=== PATIENT | female | born 1955 | race Caucasian/White ===

== ENCOUNTER 2017-05-08 13:13 | Outpatient (CLI) | payer OTHER, SELFPAY | END 2017-05-08 13:14 | disposition home or self-care (01) | LOC: BICMAMMO 13:13 | PROVIDERS: ATTEND Physician Assistant | DX: Z12.31 Encounter for screening mammogram for malignant neoplasm of breast (principal); Z85.3 Personal history of malignant neoplasm of breast | CPT/HCPCS: 77063; 77067 ==

== ENCOUNTER 2018-07-01 08:42 | Outpatient (CLI) | payer OTHER ==
--- NOTE | 2018-07-01 10:01 | BD ---
DEXA BONE DENSITY STUDY: Date: 07/01/18 HISTORY: Postmenopausal. FINDINGS: Right Femoral Neck: 0.754 T-Score: -0.9 Total: 0.914 T-Score: -0.2 Left Femoral Neck: 0.733 T-Score: -1.9 Total: 0.900 T-Score: -0.3 IMPRESSION: Normal bone mineral density of the right and left femoral necks. POS: TPC
--- NOTE | 2018-07-02 11:58 | MMO ---
Bilateral MAMMO Bilat Screen [facility]. CLINICAL HISTORY: Patient is 62 years old and is seen for screening. The patient has the following family history of breast cancer: mother, at age 70 and maternal aunt, malignant (generic), X2. The patient has no personal history of cancer. VIEWS: The views performed were: bilateral craniocaudal with tomosynthesis and bilateral mediolateral oblique with tomosynthesis. FILMS COMPARED: The present examination has been compared to prior imaging studies performed at [facility] on 05/08/2017, and at [facility] on 09/19/2013, 09/22/2013 and 10/12/2014. MAMMOGRAM FINDINGS: There are scattered fibroglandular densities. There are stable benign appearing calcifications seen in both breasts. There are no suspicious masses, suspicious calcifications, or new areas of architectural distortion. IMPRESSION: THERE IS NO MAMMOGRAPHIC EVIDENCE OF MALIGNANCY. A ROUTINE FOLLOW-UP MAMMOGRAM IN 1 YEAR IS RECOMMENDED. THE RESULTS OF THIS EXAM WERE SENT TO THE PATIENT. ACR BI-RADS Category 2 - Benign finding MAMMOGRAPHY NOTE: 1. A negative mammogram report should not delay a biopsy if a dominant of clinically suspicious mass is present. 2. Approximately 10% to 15% of breast cancers are not detected by mammography. 3. Adenosis and dense breasts may obscure an underlying neoplasm.
== END 2018-07-01 08:43 | disposition home or self-care (01) ==
LOC: BICMAMMO 08:42
PROVIDERS: ATTEND Physician Assistant
DX: Z12.31 Encounter for screening mammogram for malignant neoplasm of breast (principal); Z13.820 Encounter for screening for osteoporosis; Z78.0 Asymptomatic menopausal state; Z80.3 Family history of malignant neoplasm of breast
CPT/HCPCS: 77063; 77067; 77080

== ENCOUNTER 2019-01-11 09:50 | Outpatient (CLI) | payer MEDICARE ==
[2019-01-11] MEDS ORDERED: Iopamidol 370 76% 100 ML VIAL ONE (10:04)
--- NOTE | 2019-01-11 12:03 | CT ---
Exam: CT angiogram of the chest HISTORY: Months of breath. Elevated d-dimer. COMPARISON: None TECHNIQUE: CT angiogram of the chest is performed in the axial plane. Three-dimensional reformatted i mages are submitted for interpretation FINDINGS: Mediastinum: No mass, lymphadenopathy or hematoma. HEART: Normal size. No significant pericardial fluid. Aorta: No aneurysm or dissection. Slight elongation likely due to overall rightward curvature of the lumbar spine. The origin of the great vessels of the neck are grossly unremarkable. Upper solid abdominal viscera: No abnormality enhancement. Small hiatal hernia is identified. Trachea and central bronchi: Patent Pleural spaces: No effusion Lung parenchyma: Patchy groundglass opacities throughout the lung parenchyma. Additional linear opaci ties are noted in the lingula and bilateral lower lobes likely due to scar/atelectasis. Pneumothorax: None Osseous structures: There is evidence of internal fixation with Wilkins rods. There is a dextro sc oliosis of the thoracic spine. Pulmonary arteries: Adequate contrast opacification pulmonary arterial system to the level of segment al arteries. No filling defect to suggest pulmonary embolism IMPRESSION: 1. No evidence of pulmonary artery embolism to the level of the segmental arteries. 2. Dextroscoliosis of the thoracic spine. Associated internal fixation hardware. 3. Moderate hiatal hernia. 4. Patchy groundglass opacities which may represent edema. Atelectasis or scarring in the lower lobes and lingula.
== END 2019-01-11 09:51 | disposition home or self-care (01) ==
LOC: CT 09:50
PROVIDERS: ATTEND Physician Assistant
DX: R06.09 Other forms of dyspnea (principal); R79.1 Abnormal coagulation profile; M41.9 Scoliosis, unspecified; K44.9 Diaphragmatic hernia without obstruction or gangrene; R91.8 Other nonspecific abnormal finding of lung field
CPT/HCPCS: 71275; 82565; Q9967

== ENCOUNTER 2019-09-26 08:25 | Outpatient (CLI) | payer MEDICARE ==
--- NOTE | 2019-09-26 09:34 | MMO ---
Bilateral MAMMO Bilat Screen [facility]. CLINICAL HISTORY: Patient is 63 years old and is seen for screening. The patient has the following family history of breast cancer: mother, at age 70 and maternal aunt, malignant (generic), X2. The patient has no personal history of cancer. VIEWS: The views performed were: bilateral craniocaudal with tomosynthesis and bilateral mediolateral oblique with tomosynthesis. FILMS COMPARED: The present examination has been compared to prior imaging studies performed at [facility] on 05/08/2017 and 07/01/2018, and at [facility] on 09/22/2013 and 10/12/2014. This study has been interpreted with the assistance of computer-aided detection. MAMMOGRAM FINDINGS: There are scattered fibroglandular densities. There are stable benign appearing calcifications seen in both breasts. There are no suspicious masses, suspicious calcifications, or new areas of architectural distortion. IMPRESSION: THERE IS NO MAMMOGRAPHIC EVIDENCE OF MALIGNANCY. A ROUTINE FOLLOW-UP MAMMOGRAM IN 1 YEAR IS RECOMMENDED. THE RESULTS OF THIS EXAM WERE SENT TO THE PATIENT. ACR BI-RADS Category 2 - Benign finding MAMMOGRAPHY NOTE: 1. A negative mammogram report should not delay a biopsy if a dominant of clinically suspicious mass is present. 2. Approximately 10% to 15% of breast cancers are not detected by mammography. 3. Adenosis and dense breasts may obscure an underlying neoplasm. Reported by: PEDRITO MYERS MD Electonically Signed: [id number]
== END 2019-09-26 08:26 | disposition home or self-care (01) ==
LOC: BICMAMMO 08:25
PROVIDERS: ATTEND Family Medicine
DX: Z12.31 Encounter for screening mammogram for malignant neoplasm of breast (principal); Z80.3 Family history of malignant neoplasm of breast
CPT/HCPCS: 77063; 77067